=== PATIENT | female | born 1960 | race Caucasian/White ===

== ENCOUNTER 2025-01-29 06:23 | Day surgery (SDC) | payer BC, SELFPAY ==
[2025-01-29 07:31] LABS: Glucose - Point of Care 110 mg/dl (70-99)
== END 2025-01-29 09:02 | disposition home or self-care (01) ==
LOC: GI 06:23
PROVIDERS: ATTENDING PHYSICIAN Internal Medicine
DX: Z12.11 Encounter for screening for malignant neoplasm of colon (principal); K64.8 Other hemorrhoids; Z86.0100 Personal history of colon polyps, unspecified
CPT/HCPCS: G0105; 82962

== ENCOUNTER 2025-05-14 14:24 | Emergency (ER) | payer BC, SELFPAY ==
[2025-05-14 14:30] VITALS: BP 174/118
--- NOTE | 2025-05-14 14:43 | ED.SKININJ ---
HPI-Injury
General
Chief Complaint: Eye Problems
Source: patient
Exam Limitations: none
Time Seen by Provider: 05/14/25 14:42
Nursing documentation reviewed up to this point in time: agreed with
History of Present Illness-Injury
Is this injury a work related problem?: Yes
Is pt an associate of [facility]?: No
Initial Injury comments:
65 yo female with history of NIDDM, presents for 'sandpaper feeling' in the left eye. She was at work at [employer] at 1 PM (1hr 45 min ago), cleaning, she had a bottle of street light lamp cleaner ([employer]) in her hand and when she sat it down on the
counter the lid was off and some splashed up into her left eye. She rinsed the eye consistently for 10 minutes under running water, then went back and forth frequently rinsing the eye.
Pt has picture of the bottle: [employer] C[employer] clean
Spoke with poison control Mattie, read her the ingredients. Chemical abrasion can occur recommends irrigating the eyes for 15 to 20 minutes straight, room temperature water, saline, afterwards no eyedrops in the eyes, check the pH of the eye,
fluorescein stain.
Past History
Past History
ED Past Medical History: NIDDM
Review of Systems
Review of Systems
Allergies reviewed?: Yes
All Other Systems: ROS reviewed and negative except as documented in HPI and ROS
EENT: Reports tearing (Redness, irritation left eye)
Phy Exam
Physical Exam
Physical Exam:
PHYSICAL EXAMINATION:
General: no apparent distress, not acutely ill
Neuro: alert and oriented.
Psychiatric: well kept. interactive and cooperative
Musculoskeletal: Moves with ease
Skin: Warm, pink.
Eye Exam
Eye Exam: PERRL, EOMI, globe normal and other ( left eye: Conjunctiva Injected, mild chemosis lower conjunctiva. Cornea is clear. Fluorescein stain reveals corneal abrasion between 11 and 1 o'clock upper cornea and a smaller abrasion at 6 o'clock.
After irrigation with NSS, pH 7.0)
Course
Orders/Labs/Results
Orders:
Orders
05/14/25 14:43
Visual Acuity- Treatment ONCE
Vital Signs
Initial and Last Documented VS:
Initial Vital Signs
Temp Pulse Resp BP Pulse Ox
98.7 F 96 16 174/118 99
05/14/25 14:30 05/14/25 14:30 05/14/25 14:30 05/14/25 14:30 05/14/25 14:30
Last Documented Vital Signs
Temp Pulse Resp BP Pulse Ox
98.7 F 96 16 174/118 99
05/14/25 14:30 05/14/25 14:30 05/14/25 14:30 05/14/25 14:30 05/14/25 14:51
MDM/Problems Addressed
Differential Diagnosis Includes:
chemical conjunctivitis, corneal abrasion, acid/alkalai burn
MDM/Problems Addressed:
65 yo female with history of NIDDM, presents for 'sandpaper feeling' in the left eye. She was at work at [employer] at 1 PM (1hr 45 min ago), cleaning, she had a bottle of street light lamp cleaner ([employer]) in her hand and when she sat it down on the
counter the lid was off and some splashed up into her left eye. She rinsed the eye consistently for 10 minutes under running water, then went back and forth frequently rinsing the eye.
Pt has picture of the bottle: [employer] C[employer] clean
Spoke with poison control Mattie, read her the ingredients. Chemical abrasion can occur recommends irrigating the eyes for 15 to 20 minutes straight, room temperature water, saline, afterwards no eyedrops in the eyes, check the pH of the eye,
fluorescein stain.
Visual acuity noted.
pH normal at 7.0. Eye irrigated, good relief with topical anesthetic, few small corneal abrasions on fluorescein exam. Cornea clear
She called her eye doctor and has follow up appointment for tomorrow.
Rx for antibiotic eye drops sent to pharmacy.
*Pulse Oximetry
SaO2: 99
Oxygen Mode of Delivery: Room air
Patient hypoxic: not evaluated
*Critical Care Note
Total Time (30-74mins, 75-104mins- exclusive of procedures): Not Applicable
ED Attending Note
-
Portions of this chart may have been created with voice recognition software.� Occasional wrong word or��sound alike� substitutions may have occurred due to the inherent limitations of voice recognition software.
Discharge Plan
Departure
Patient Disposition: Home (Routine Discharge)
Date of Disposition: 05/14/25
Time of Disposition: 15:20
Patient with high blood pressure during this ER visit?: No
Condition: Good
Discharge Problem:
Corneal abrasion, left, Chemical injury of left eye
Instructions: Corneal Abrasion (DC), How to Use Eye Drops
Prescriptions:
New
ofloxacin [Ocuflox] 0.3 % drops
1 drp ophthalmic (eye) QID Qty: 5 0RF
Referrals:
[facility] [Other] - Keep scheduled appt
Julio Woodard MD [Family Provider, Family Practice]
Activity Restrictions/Additional Instructions:
As we discussed, cool compress to the eye 10 minutes off and on as needed for comfort
Ibuprofen 600 mg every 6 hours as needed with food may help with the eye discomfort
Keep your eye appointment for tomorrow doctors return here immediately for loss of vision, worsening pain or feeling worse in any way
I sent a prescription to your pharmacy for antibiotic eyedrops, use 1 to 2 drops in the affected eye 4 times a day until further instructed by the eye doctor.
Interventions
Interventions:
*Nursing Disposition Last Done: 05/14/25 16:44
Discharge Date and Time
Discharge Date/Time: 05/14/25 16:44
Print Language: HUNGARIAN
== END 2025-05-14 16:44 | disposition home or self-care (01) ==
LOC: EMR 14:24
PROVIDERS: EMERGENCY PHYSICIAN Emergency Medicine; FAMILY PHYSICIAN Family Medicine
DX: S05.02XA Injury of conjunctiva and corneal abrasion without foreign body, left eye, initial encounter (principal); X58.XXXA Exposure to other specified factors, initial encounter; Y99.0 Civilian activity done for income or pay; E11.9 Type 2 diabetes mellitus without complications
CPT/HCPCS: 99283